=== PATIENT | female | born 1965 | race Caucasian/White ===

== ENCOUNTER → 2021-02-26 09:23 | Outpatient (CLI) | payer MEDICAID, SELFPAY ==
[2021-02-26 13:30] VITALS: PULSE 70; PULSE 81; PULSE 92; PULSE 97; O2SAT 100; O2SAT 91; O2SAT 94; O2SAT 96
--- NOTE | 2021-02-26 13:52 | CPS ---
At 3 minutes into walk when pt was asked how she felt she had stated she felt shaky. Pt was informed she could stop and take a rest if needed. Pt stopped and was leaning on wall. Pulse ox reading was 100% aproximately 10 seconds after pt stopped. Pt then began shaking. starting with her arms only at first. Pt was helped to ground and then began shaking all over. Rapid response was called. Pt did not hit her head or become unconscious. Pt's saturation remained in the 90's. Pt was transported in wheel chair to ER.
--- NOTE | 2021-02-27 05:22 | PCM.PSN.6M ---
PSN 6 Minute Walk Test 6 Minute Walk Test 6 Minute Walk Test: 6 Minute Walk Test PSN:6-Minute Walk Test Start: 02/26/21 13:47 Freq: Status: Active Protocol: RESP.6MINW Document 02/26/21 13:30 [facility] (Rec: 02/26/21 14:01 [facility] [id number]) 6 Minute Walk Test Date Performed 02/26/21 Time Performed 13:30 Height 5 ft 6 in Weight: 95.254 kg Weight in Pounds 210.[address]: Dr Wood Assistive device used: Cane Pre-test Oxygen Delivery Method Room Air Pulse Ox (%) 100 Pulse Rate (60-100 beats/min) 70 Dyspnea Carrol Scale (0-10) 0.5 Exertion Carrol Scale (6-20) 6 1st minute Oxygen Delivery Method Room Air Pulse Ox (%) 96 Pulse Rate (60-100 beats/min) 81 2nd minute Oxygen Delivery Method Room Air Pulse Ox (%) 94 Pulse Rate (60-100 beats/min) 92 3rd minute Oxygen Delivery Method Room Air Pulse Ox (%) 91 Pulse Rate (60-100 beats/min) 97 Dyspnea Carrol Scale (0-10) 0 Number of Rests Taken 1 Full Laps Walked 11 Partial Lap, Number of Tiles Walked 0 Total Distance Walked (ft) 649 02/26/21 13:52 Cardiopulmonary Services by Janna Gonsales At 3 minutes into walk when pt was asked how she felt she had stated she felt shaky. Pt was informed she could stop and take a rest if needed. Pt stopped and was leaning on wall. Pulse ox reading was 100% aproximately 10 seconds after pt stopped. Pt then began shaking. starting with her arms only at first. Pt was helped to ground and then began shaking all over. Rapid response was called. Pt did not hit her head or become unconscious. Pt's saturation remained in the 90's. Pt was transported in wheel chair to ER. Initialized on 02/26/21 13:52 - END OF NOTE Interpretation Interpretation: The patient was noted to be saturating 100% on room air at rest. Patient did have significant desaturation as low as 91% after 3 minutes of ambulation. Heart rate increased from 70-97 over this period of time. However, at 3 minutes, patient started to become shaky. This reportedly started with her arms and then she was helped to the ground with shaking all over. Patient did not become unconscious, bite her tongue or have urinary incontinence. Patient was reportedly interactive throughout. Patient was taken to the ER for evaluation. Recommendations Recommendations: Consider repeating testing in the future. Patient did have significant desaturation, but would not qualify for supplemental oxygen after ambulating only 3 minutes.
== END ==
PROVIDERS: Referring Provider Internal Medicine Critical Care Medicine; Visit Provider Internal Medicine Critical Care Medicine
DX: R06.02 Shortness of breath (principal); R55 Syncope and collapse; I10 Essential (primary) hypertension; F41.9 Anxiety disorder, unspecified; F32.A Depression, unspecified; Z79.899 Other long term (current) drug therapy; Z87.891 Personal history of nicotine dependence
CPT/HCPCS: 71045; 80048; 82962; 84484; 85025; 85379; 93005; 94618; 99285; J7030; A4216

== ENCOUNTER 2021-02-26 13:30 | Emergency (ER) | payer MEDICAID, SELFPAY ==
[2021-02-26 13:31] VITALS: BP 133/80; PULSE 82; RESP 16; TEMP 37; O2SAT 99; BMI 33.9
[2021-02-26 13:46] VITALS: O2SAT 100
--- NOTE | 2021-02-26 13:46 | EKG12_ITS ---
Test Reason : SYNCOPE Blood Pressure : / mmHG Vent. Rate : 081 BPM Atrial Rate : 081 BPM P-R Int : 154 ms QRS Dur : 082 ms QT Int : 376 ms P-R-T Axes : 059 026 011 degrees QTc Int : 436 ms Normal sinus rhythm Nonspecific ST abnormality Abnormal ECG Confirmed by OSMAN MEDRANO, CHRISTOPHER ([id number]), makeup editor RAMON HARVEY ([id number]) on 02/27/2021 6:57:35 AM Referred By: ETHAN Confirmed By:CHRISTOPHER BREWER MD
[2021-02-26 14:02] VITALS: BP 129/67; BP 130/76; PULSE 84; PULSE 91
--- NOTE | 2021-02-26 14:06 | EX.ED.DYSGE1 ---
HPI History of Present Illness Chief Complaint: Syncope Detail of Chief Complaint: Syncope and shortness of breath Informant: patient Narrative Narrative: Patient presents to the emergency department after a syncopal episode while at the hospital having a walking test. Patient states that she has been having spells for the last year and a half or so. Patient is having episodes of syncope. She has had significant work-up and seen multiple physicians. She is worn Holter monitors and has had EEG. She has seen cardiology and neurology. She had a appointment with Dr. Zach Wood yesterday and had some more testing ordered for today and that is why she was at the hospital today. Patient remembers walking and feeling lightheaded and shaky and then passing out. Rapid response team was called and patient was brought to the emergency department. She denies recent illness. Patient states that before all this started she believes that she may have had Covid but it was early on in the pandemic before a lot of the testing was available. Patient describes some intermittent chest tightness. She states that she had a stress test about a year ago or so and it was normal. Prior similar symptoms: Yes PFSH PFS Medical History (Updated 02/26/21 @ 15:[address] Ricardo Lucia, DO) Anxiety Bronchitis Depression HTN (hypertension) Home Medications biotin 1 mg capsule 1 mg PO DAILY 02/24/21 [History Last Taken Unknown] buspirone 10 mg tablet 10 mg PO BID 02/24/21 [History Last Taken Unknown] cholecalciferol (vitamin D3) 25 mcg (1,000 unit) capsule 25 mcg PO DAILY 02/24/21 [History Last Taken Unknown] estradiol 1 appful VAGINAL DAILY 02/24/21 [History Last Taken Unknown] metoprolol tartrate 25 mg tablet 25 mg PO DAILY 02/24/21 [History Last Taken Unknown] paroxetine HCl 20 mg tablet 20 mg PO DAILY 02/24/21 [History Last Taken Unknown] Allergy/AdvReac Type Severity Reaction Status Date / Time ciprofloxacin [From Cipro] AdvReac hives Verified 02/26/21 13:33 influenza virus vacc tvs AdvReac Vomiting Verified 02/26/21 13:33 2012-14(19yr,up) cell lucas [From Flucelvax] latex AdvReac Hives Verified 02/26/21 13:33 Family History (Updated 11/09/21 @ 09:14 by Samia Grigsby) Father Myocardial infarction Emphysema lung Brother Narcolepsy Aunt COVID-19 Surgical History (Updated 02/24/21 @ 09:13 by Samia Grigsby) H/O shoulder surgery Social History (Updated 02/24/21 @ 09:15 by Samia Grigsby) Smoking Status: Former smoker Tobacco: How many years used: 2 ROS ROS ED ROS Narrative Syncope Constitutional Constitutional ED: Reports systems reviewed and no addt'l complaints, except as documented; Denies body ache(s), change in weight or chills Eyes Eyes: Denies acute decrease in peripheral vision, change in vision, double vision or loss of vision ENT ENT ED: Reports none; Denies ear pain, lip swelling, loss taste/smell, neck pain, otalgia or sore throat Cardiovascular Cardiovascular: Reports none and chest pain; Denies abdominal pain, chest pain with activity, leg edema, lightheadedness, palpitations, rapid heart rate or syncope Respiratory/Chest Respiratory/Chest: Reports dyspnea Gastrointestinal Gastrointestinal: Reports none; Denies abdominal pain, change in stool character, diarrhea, hematemesis, hematochezia, melena, rectal bleeding or vomiting Genitourinary Genitourinary ED: Reports none; Denies abdominal discomfort, anuria, dysuria, genital pain or polyuria Musculoskeletal Musculoskeletal: Reports none; Denies arthralgias, back pain, difficulty walking, extremity pain, muscle weakness or myalgias Integumentary Reports none; Denies abscess or rash Neurologic Neurologic: Reports none; Denies abnormal gait, confusion, focal weakness, frequent falls, headache(s), loss of vision, numbness, paresthesias, radicular pain, vertigo or weakness Psychiatric Psychiatric: Reports systems reviewed and no addt'l complaints, except as documented and none; Denies behavioral changes, confusion, difficulty concentrating, hallucinations, suicidal ideation, tactile hallucinations or visual hallucinations Endocrine Endocrinology: Denies none, cold intolerance, excessive sweating, fatigue or heat intolerance Hematologic/Lymphatic Hematologic/Lymphatic: Reports none; Denies anemia, easy bleeding or easy bruising Allergic/Immunologic Allergic/Immunologic ED: Denies as per HPI, none, lip swelling, mouth swelling, throat swelling, tongue swelling or hives EXAM Physical Exam Const Vital Signs: 02/26/21 13:31 02/26/21 13:46 02/26/21 13:48 Temperature 98.6 F Temperature Source Oral Pulse Rate 82 Pulse Rate [Lying] Pulse Rate [Sitting] Respiratory Rate 16 Respiratory Effort Normal Non-Labored Respiratory Pattern Normal Blood Pressure 133/80 H Blood Pressure [Lying] Blood Pressure [Sitting] Blood Pressure Mean 97 Blood Pressure Mean [Lying] Blood Pressure Mean [Sitting] Pulse Ox 99 100 Oxygen Delivery Method Room Air Room Air 02/26/21 14:02 Temperature Temperature Source Pulse Rate Pulse Rate [Lying] 91 Pulse Rate [Sitting] 84 Respiratory Rate Respiratory Effort Respiratory Pattern Blood Pressure Blood Pressure [Lying] 130/76 H Blood Pressure [Sitting] 129/67 H Blood Pressure Mean Blood Pressure Mean [Lying] 94 Blood Pressure Mean [Sitting] 87 Pulse Ox Oxygen Delivery Method Positive well nourished and well developed General Appearance ED: well developed and NAD HEENT Reports TM's clear and moist mucous membranes normocephalic and atraumatic; Negative for trauma or tenderness Tympanic Membrane ED: Yes TM's clear Eyes PERRL and EOMs intact bilaterally General Eye ED: Negative for pale conjunctiva or scleral icterus Neck no lymphadenopathy, supple and no JVD General: Negative for tenderness Chest Wall inspection of chest normal and palpation of chest normal Chest: Negative for tenderness Resp normal respiratory effort and clear to auscultation bilaterally Effort and Inspection: Negative for respiratory distress or pain with movement Auscultation: Negative for rhonchi, wheezes or diminished lung sounds Cardio regular rate, regular rhythm, S1 normal heart sound, S2 normal heart sound and no murmurs Peripheral Pulses: pulses 2+ throughout GI normal to inspection, nondistended, normoactive bowel sounds, soft to palpation, non-tender, non-distended and no masses Back/Spine no CVA tenderness and no thoracic nor lumbar tenderness Extremity normal to inspection General Extremety ED: Negative for edema General Extremity: Negative for edema Neuro oriented x3, CN's II-XII intact bilaterally, no sensory deficits noted and gait normal Sensorium / Orientation: awake, alert, oriented to person, oriented to place and oriented to time Motor Exam: strength 5/5 throughout and strength abnormal Psych mental status grossly normal Skin no rashes or lesions noted and no wounds MDM MDM MDM Narrative Medical decision making narrative: IV line established on arrival. Patient had orthostatic vital signs that were unremarkable. Patient was given normal saline. Lab work-up and EKG unremarkable. D-dimer was negative. At this point etiology of her syncope is unclear. This has been an ongoing issue for her for almost 2 years. Patient has been seen by cardiology and neurology without any etiology found. Patient states that she has had cortisol levels checked and hormone testing as well. At this point she is feeling well. I did advise her not to drive today. Patient believes that she can have a family member pick her up and bring her back tomorrow for the rest of her testing. Lab Data Attestation: I reviewed the patient's lab results. Labs: Laboratory Results - last 24 hr 02/26/21 02/26/21 02/26/21 13:53 13:55 13:55 WBC 6.3 RBC 4.28 Hgb 13.5 Hct 41.7 MCV 97.4 MCH 31.5 MCHC 32.4 RDW Std Deviation 46.1 H RDW Coeff of [place] 12.9 Plt Count 224 MPV 9.8 Immature Gran % (Auto) 0.300 Neut % (Auto) 52.0 Lymph % (Auto) 39.3 [place] % (Auto) 5.4 Eos % (Auto) 2.4 Baso % (Auto) 0.6 Absolute Neuts (auto) 3.3 Absolute Lymphs (auto) 2.47 Nucleated RBC % 0 D-Dimer Quant (PE/DVT) <= 0.27 Sodium Potassium Chloride Carbon Dioxide Anion Gap BUN Creatinine Estim Creat Clear Calc Est GFR (MDRD) Af Amer Est GFR (MDRD) Non-Af BUN/Creatinine Ratio Glucose Calcium Troponin I High Sens POC Glucose 112 H 02/26/21 13:55 WBC RBC Hgb Hct MCV MCH MCHC RDW Std Deviation RDW Coeff of [place] Plt Count MPV Immature Gran % (Auto) Neut % (Auto) Lymph % (Auto) [place] % (Auto) Eos % (Auto) Baso % (Auto) Absolute Neuts (auto) Absolute Lymphs (auto) Nucleated RBC % D-Dimer Quant (PE/DVT) Sodium 141 Potassium 3.7 Chloride 104 Carbon Dioxide 30.0 Anion Gap 7 BUN 15 Creatinine 0.94 Estim Creat Clear Calc 64.05 Est GFR (MDRD) Af Amer 79 Est GFR (MDRD) Non-Af 66 BUN/Creatinine Ratio 15.9 Glucose 112 H Calcium 8.7 Troponin I High Sens 5 POC Glucose Radiography Chest X-Ray - ED: 1 View Diagnostic Testing: Clinical Impression(s) from Imaging Studies Chest X-Ray 02/26/21 14:10 IMPRESSION: Normal x-ray examination of the chest. Electronically Signed: Jaren Castellanos MD at 14:23 EST , Service support , 1 view chest x-ray obtained showed no acute disease process on my interpretation. Radiology in agreement. EKG Initial EKG: Attestation: I personally reviewed and interpreted this EKG as follows: Comments: Sinus rhythm with a ventricular rate of [address] changes. Discharge Plan Triage Chief Complaint: Syncope ED Provider: Ricardo Lucia Dx/Rx/DC Orders Clinical Impression: Syncope, SOB (shortness of breath), Anxiety Instructions: Diagnosing Syncope, Anxiety Disorders Tx Therapy, ED Dyspnea, ED Fainting, Uncertain Cause Prescriptions: No Action biotin 1 mg capsule 1 mg PO DAILY RF: 0 buspirone 10 mg tablet 10 mg PO BID RF: 0 cholecalciferol (vitamin D3) 25 mcg (1,000 unit) capsule 25 mcg PO DAILY RF: 0 estradiol 0.01 % (0.1 mg/gram) cream 1 appful vaginal DAILY RF: 0 metoprolol tartrate 25 mg tablet 25 mg PO DAILY RF: 0 paroxetine HCl 20 mg tablet 20 mg PO DAILY RF: 0 Primary Care Provider: Care Physician,No Primary Referrals: Care Physician,No Primary [Primary Care Provider] - Activity Restrictions/Additional Instructions: Keep your appointment with pulmonology and follow-up with your primary care physician. Disposition Disposition: Home, Self Care
[2021-02-26 14:10] LABS: Bedside Glucose 112 mg/dL (70-110)
--- NOTE | 2021-02-26 14:10 | RAD_ITS ---
STUDY: X-RAY CHEST REASON FOR EXAM: Female, 55 years old. Dyspnea TECHNIQUE: Single AP portable view of the chest. COMPARISON: None. FINDINGS: EKG electrodes are seen. The lungs are clear and expanded. There is no demonstrated pleural abnormality. Normal size heart. Normal mediastinum and myla. Normal visualized pulmonary arteries. Normal visualized aortic arch and descending thoracic aorta. Normal visualized thoracic spine. Normal visualized ribs, clavicles, and shoulders. There is no demonstrated abnormality of the visualized soft tissue structures of the upper abdomen. RAD/Chest 1 View (Portable) IMPRESSION: Normal x-ray examination of the chest. Electronically Signed: Jaren Castellanos MD at 14:23 EST , Service support ,
[2021-02-26 14:15] LABS: Absolute Lymphocyte Count 2.47 X10^3/uL (0.83-4.51); Absolute Neutrophil Count 3.3 X10^3/uL (2.0-7.7); Basophil# 0.04 X10^3/uL; Basophil% 0.6 % (0-1); Eosinophil# 0.15 X10^3/uL; Eosinophils% 2.4 % (0-5); Hematocrit 41.7 % (37-47); Hemoglobin 13.5 g/dL (12.0-15.0); Lymphocyte # 2.47 X10^3/ul (0.83-4.51); Lymphocyte % 39.3 % (19-41); Mean Corp Hgb Conc 32.4 g/dL (32-36); Mean Corpuscular Hgb 31.5 pg (27.0-32.0); Mean Corpuscular Volume 97.4 fL (81-99); Mean Platelet Vol. 9.8 fl (6.2-12.0); Monocyte# 0.34 X10^3/uL; Monocyte% 5.4 % (0-10); NRBC Flagged by Analyzer 0 % (0-5); Neutrophil # 3.27 X10^3/uL (2.7-7.7); Platelet Count 224 K/mm3 (150-450); RBC Distribution Width CV 12.9 % (11.6-14.6); RBC Distribution Width SD 46.1 fl (35.1-43.9); Red Blood Count 4.28 M/mm3 (4.2-5.4); White Blood Count 6.3 K/mm3 (4.4-11.0)
[2021-02-26] MEDS: 0.9% Normal Saline 1,000 ML 150 ML IV (14:15)
[2021-02-26 14:26] LABS: D-Dimer Quantitative (DVT/PE) <= 0.27 FEU/ug/m (0.27-0.49)
[2021-02-26 14:29] LABS: Anion Gap 7 (5-15); BUN 15 mg/dL (7-18); BUN/Creat Ratio 15.9 RATIO (10-20); Calcium,Total 8.7 mg/dL (8.5-10.1); Chloride 104 mmol/L (98-107); Creatinine, Serum 0.94 mg/dL (0.55-1.02); EST Glomerular Filtration Rate 66 mL/min (>60); Est Glom Filt Rate - Afr Amer 79 mL/min (>60); Estimated Creatinine Clearance 64.05 ml/min; Glucose 112 mg/dL (74-106); Potassium 3.7 mmol/L (3.5-5.1); Sodium Level 141 mmol/L (136-145); Troponin-I HS 5 pg/mL (3.0-54.0)
[2021-02-26 15:15] VITALS: PULSE 84; RESP 16; O2SAT 100
== END 2021-02-26 15:25 | disposition home or self-care (01) ==
PROVIDERS: Emergency Provider Emergency Medicine
DX: R55 Syncope and collapse (principal); R06.02 Shortness of breath; I10 Essential (primary) hypertension; F41.9 Anxiety disorder, unspecified; F32.A Depression, unspecified; Z79.899 Other long term (current) drug therapy; Z87.891 Personal history of nicotine dependence
CPT/HCPCS: 71045; 80048; 82962; 84484; 85025; 85379; 93005; 96360; 99285; J7030; A4216

== ENCOUNTER → 2021-02-27 09:26 | Outpatient (CLI) | payer MEDICAID, SELFPAY ==
--- NOTE | 2021-02-27 13:56 | PFTCOMP_ITS ---
COMPLETE PULMONARY FUNCTION TEST INTERPRETATION Brief HPI: Patient is a 55 year old female, currently under the care of Dr. Wood, who presents to [facility] for complete pulmonary function tests secondary to diagnosis of dyspnea. Respiratory therapist reports good effort and reproducible results. Interpretation: Forced expiration spirometry shows no large airways obstructive ventilatory defect with an FEV1 of 97% predicted. There is some improvement following bronchodilators, but no significant bronchodilator response by strict ATS criteria. Spirograms are of good quality and plateau slowly, indicating slowly emptying areas of the lungs. The respiratory flow volume loop shows decreased expiratory flow rates at high lung volumes consistent with small airways obstruction. Lung volumes by body plethysmography show a normal total lung capacity at 5.07 L, 95% predicted. All other lung volumes are within normal limits. Diffusion capacity by carbon monoxide is decreased at 68% predicted. The airway resistance is normal. No previous pulmonary function tests were available for review. Impression: Isolated reduction in diffusion capacity with some stigmata of possible small airways disease.
== END ==
PROVIDERS: Referring Provider Internal Medicine Critical Care Medicine; Visit Provider Internal Medicine Critical Care Medicine
DX: R06.02 Shortness of breath (principal)
CPT/HCPCS: 94060; 94726; 94729

== ENCOUNTER 2021-05-05 11:09 | Outpatient (CLI) | payer MEDICAID, SELFPAY ==
[2021-05-05 11:39] VITALS: PULSE 63; PULSE 71; PULSE 81; PULSE 82; PULSE 87; O2SAT 100; O2SAT 97; O2SAT 98; O2SAT 99
--- NOTE | 2021-05-05 11:43 | CPS ---
,LULU STOPPED TO REST AFTER 3 MINS FOR 15 SECS SHE ALSO COMPLAINED OF TINGLING IN HER LEGS AND ARMS.
--- NOTE | 2021-05-05 13:51 | PCM.PSN.6M ---
PSN 6 Minute Walk Test 6 Minute Walk Test 6 Minute Walk Test: 6 Minute Walk Test PSN:6-Minute Walk Test Start: 05/05/21 11:38 Freq: Status: Active Protocol: RESP.6MINW Document 05/05/21 11:39 [facility] (Rec: 05/05/21 11:44 FR [id number]) 6 Minute Walk Test Date Performed 05/05/21 Time Performed 11:15 Height 5 ft 6 in Weight: 90.718 kg Weight in Pounds 200.[address]: EMANUEL/ALEAH Assistive device used: None Pre-test Oxygen Delivery Method Room Air Pulse Ox (%) 98 Pulse Rate (60-100 beats/min) 63 Dyspnea Carrol Scale (0-10) 4 Exertion Carrol Scale (6-20) 9 1st minute Oxygen Delivery Method Room Air Pulse Ox (%) 98 Pulse Rate (60-100 beats/min) 81 2nd minute Oxygen Delivery Method Room Air Pulse Ox (%) 98 Pulse Rate (60-100 beats/min) 81 3rd minute Oxygen Delivery Method Room Air Pulse Ox (%) 97 Pulse Rate (60-100 beats/min) 82 4th minute Oxygen Delivery Method Room Air Pulse Ox (%) 100 Number of Rests Taken 1 Reported Symptoms Increased Work of Breathing 5th minute Oxygen Delivery Method Room Air Pulse Ox (%) 98 Pulse Rate (60-100 beats/min) 87 6th minute Oxygen Delivery Method Room Air Pulse Ox (%) 98 Pulse Rate (60-100 beats/min) 81 Dyspnea Carrol Scale (0-10) 7 Exertion Carrol Scale (6-20) 12 Post-test Oxygen Delivery Method Room Air Pulse Ox (%) 99 Pulse Rate (60-100 beats/min) 71 Full Laps Walked 16 Partial Lap, Number of Tiles Walked 44 Total Distance Walked (ft) 988 05/05/21 11:43 Cardiopulmonary Services by Paris Santoyo ROBIN STOPPED TO REST AFTER 3 MINS FOR 15 SECS SHE ALSO COMPLAINED OF TINGLING IN HER LEGS AND ARMS. Initialized on 05/05/21 11:43 - END OF NOTE Interpretation Interpretation: The patient was able to ambulate 988 feet over the course of 6 minutes on room air with no assistive devices and 1 break. The patient experienced no significant desaturation or tachycardia during testing. These findings are consistent with a musculoskeletal limitation in exercise tolerance. Recommendations Recommendations: No supplemental oxygen is indicated at this time.
== END 2021-05-05 23:59 | disposition short-term general hospital (02) ==
LOC: PSN 11:12
PROVIDERS: Referring Provider Nurse Practitioner Acute Care; Visit Provider Nurse Practitioner Acute Care
DX: R06.02 Shortness of breath (principal)
CPT/HCPCS: 94618

== ENCOUNTER 2021-06-19 08:55 | Outpatient (CLI) | payer MEDICAID, SELFPAY ==
--- NOTE | 2021-06-19 11:04 | ECHOCS_ITS ---
Reason For Study: SOB Procedure This was a 2D Doppler, Color Flow transthoracic echocardiogram. Exam performed in department. Left Ventricle Normal LV size. Left ventricular systolic function is normal. The estimated ejection fraction is 55 %. Normal diastology for age. Right Ventricle Normal RV size. Normal systolic function. Atria Normal left atrium. Normal right atrium. Mitral Valve Normal mitral valve. Tricuspid Valve Normal tricuspid valve. Trivial tricuspid valve insufficiency. Pulmonary artery systolic pressure is 20 mmHg. Aortic Valve Normal aortic valve. Trisinus/trileaflet aortic valve. MMode/2D Measurements & Calculations LVIDd: 4.4 cm IVSd: 0.86 cm Ao root diam: 3.1 cm LVIDs: 2.5 cm LVPWd: 1.00 cm RVDd: 2.9 cm FS: 41.9 % LAV(MOD-bp): 40.3 ml SV(MOD-sp4): 41.1 ml LVAd ap4: 25.1 cm2 LAV(MOD-bp) Indexed: 19.7 ml/m2 LVLd ap4: 7.6 cm LAV(MOD-sp2): 46.0 ml EDV(MOD-sp4): 68.0 ml LAV(MOD-sp4): 35.1 ml EDV(sp4-el): 70.2 ml LVAs ap4: 14.1 cm2 LVLs ap4: 6.3 cm ESV(MOD-sp4): 26.9 ml ESV(sp4-el): 26.9 ml EF(MOD-sp4): 60.5 % EF(sp4-el): 61.6 % SV(sp4-el): 43.3 ml LA A4 area: 14.5 cm2 LA dimension(2D): 3.2 cm RA A4 area: 10.9 cm2 Doppler Measurements & Calculations MV E max sukumar: 79.5 cm/sec Lat Peak E' Sukumar: 11.1 cm/sec Med Peak E' Sukumar: 8.1 cm/sec MV A max sukumar: 68.7 cm/sec E/E' lat: 7.2 E/E' med: 9.8 MV E/A: 1.2 Ao V2 max: 123.5 cm/sec LV V1 max: 107.8 cm/sec PA V2 max: 82.6 cm/sec Ao max P.1 mmHg LV V1 max P.6 mmHg TR max sukumar: 209.9 cm/sec TR max P.7 mmHg ECHO/Echo Complete Interpretation Summary Normal LV size. Left ventricular systolic function is normal. The estimated ejection fraction is 55 %. Normal diastology for age. Structurally normal valves. Ordering Physician: Anna Crawley Referring Physician: Anna Crawley Performed By: Laquita Scanlon RDCS
== END 2021-06-19 23:59 | disposition home or self-care (01) ==
LOC: CVS 08:57
PROVIDERS: Referring Provider Nurse Practitioner Acute Care; Visit Provider Nurse Practitioner Acute Care
DX: R06.02 Shortness of breath (principal)
CPT/HCPCS: 93306

== ENCOUNTER → 2021-08-12 | Outpatient (CLI) | payer MEDICAID, SELFPAY | END | disposition home or self-care (01) | PROVIDERS: Visit Provider Internal Medicine Critical Care Medicine | DX: G47.33 Obstructive sleep apnea (adult) (pediatric) (principal) | CPT/HCPCS: 95810 ==

== ENCOUNTER → 2021-11-02 | Outpatient (CLI) | payer MEDICAID, SELFPAY ==
[2021-11-02] MEDS: Methacholine Chloride 18 ml neb kit INHALATION (13:02)
--- NOTE | 2021-11-03 05:21 | BRONCHALL ---
Bronchoprovocation Challenge Bronchoprovocation Challenge Bronchoprovocation Challenge: BRONCHOPROVOCATION STUDY INTERPRETATION Brief HPI: Patient is a 56 year old female, currently under the care of Dr. Wood, who presents to [facility] for a bronchoprovocation study secondary to diagnosis of dyspnea. Respiratory therapist reports good effort and reproducible results. Interpretation: Initial spirometry showed no large airways obstructive ventilatory defect. The patient was then given increasingly concentrated doses of methacholine in a stepwise/standardized fashion, using a modified ATS protocol. The patient?s maximum reduction in FEV1 was 13 percent predicted. Impression: Negative Bronchoprovocation study. This is NOT consistent with the diagnosis of asthma.
== END | disposition home or self-care (01) ==
LOC: PSN 12:43
PROVIDERS: Referring Provider Internal Medicine Critical Care Medicine; Visit Provider Internal Medicine Critical Care Medicine
DX: R06.02 Shortness of breath (principal)
CPT/HCPCS: 94070; 95070